=== PATIENT | male | born 1930 | race Caucasian/White ===

== ENCOUNTER 2018-03-10 15:15 | Inpatient (IN) | payer MEDICARE, OTHER ==
[2018-03-10 18:02] LABS: ADD MAN DIFF? NO
[2018-03-10] MEDS: OXYCODONE/ACETAMINOPHEN (5/325) TAB PO (18:07)
[2018-03-10] MEDS: SOD CHLORIDE 0.9% 500 ML IV (18:07)
[2018-03-10 18:09] LABS: INR 0.99; PARTIAL THROMBOPLASTIN TIME 29.3 Sec (25.0-35.0); PROTIME 13.2 Sec (11.9-14.9)
[2018-03-10 18:10] LABS: WHITE BLOOD COUNT 8.2 10^3/ul (4.8-10.8)
[2018-03-10 18:10] LABS: BASOPHILS % 0.5 % (0.0-2.0); EOSINOPHILS # 0.2 10^3/ul (0.0-0.5); EOSINOPHILS % 2.7 % (0.0-7.0); HEMATOCRIT 35.9 % (42.0-52.0); HEMOGLOBIN 12.2 g/dl (14.0-18.0); LYMPHOCYTES # 1.6 10^3/ul (0.8-2.9); LYMPHOCYTES % 19.9 % (15.0-51.0); MEAN CORPUSCULAR HEMOGLOBIN 32.4 pg (29.0-33.0); MEAN CORPUSCULAR VOLUME 95.2 fl (82.0-101.0); MEAN PLATELET VOLUME 9.3 fl (7.4-10.4); MONOCYTE # 0.7 10^3/ul (0.3-0.9); MONOCYTES % 8.1 % (0.0-11.0); NEUTROPHIL # 5.7 10^3/ul (1.6-7.5); NEUTROPHILS % 68.6 % (39.0-77.0); PLATELET COUNT 407 10^3/UL (140-415); RED BLOOD COUNT 3.77 10^6/ul (4.70-6.10); RED CELL DISTRIBUTION WIDTH 13.3 % (11.5-14.5)
[2018-03-10 18:11] LABS: ALANINE AMINOTRANSFERASE 88 IU/L (13-69); ALBUMIN 4.4 g/dl (3.3-4.9); ALBUMIN/GLOBULIN RATIO 1.15; ALKALINE PHOSPHATASE 82 IU/L (42-121); ANION GAP 13 (8-16); ASPARTATE AMINO TRANSFERASE 80 IU/L (15-46); BILIRUBIN,INDIRECT 0.6 mg/dl (0-1.1); BILIRUBIN,TOTAL 0.6 mg/dl (0.2-1.3); BLOOD UREA NITROGEN 18 mg/dl (7-20); CALCIUM 9.4 mg/dl (8.4-10.2); CARBON DIOXIDE 27 mmol/L (21-31); CHLORIDE 108 mmol/L (97-110); CREATININE 0.92 mg/dl (0.61-1.24); GLUCOSE 113 mg/dl (70-220); LIPASE 108 U/L (23-300); POTASSIUM 3.4 mmol/L (3.5-5.1); SODIUM 145 mmol/L (135-144); TOTAL PROTEIN 8.2 g/dl (6.1-8.1)
[2018-03-10 19:02] LABS: ADD UMIC YES; UR ASCORBIC ACID NEGATIVE (NEGATIVE); UR BILIRUBIN (Dip) NEGATIVE (NEGATIVE); UR BLOOD (Dip) 1+ mg/dL (NEGATIVE); UR CLARITY CLEAR (CLEAR); UR COLOR YELLOW (YELLOW); UR GLUCOSE (Dip) NEGATIVE (NEGATIVE); UR KETONES (Dip) NEGATIVE (NEGATIVE); UR LEUKOCYTE ESTERASE (Dip) NEGATIVE Leu/ul (NEGATIVE); UR MUCUS FEW /HPF (NONE SEEN); UR NITRITE (Dip) NEGATIVE (NEGATIVE); UR RBC 4 /HPF (0-5); UR SPECIFIC GRAVITY (Dip) 1.018 (1.003-1.030); UR TOTAL PROTEIN (Dip) 1+ mg/dl (NEGATIVE); UR UROBILINOGEN (Dip) 1+ mg/dL (NEGATIVE); UR WBC 2 /HPF (0-5)
[2018-03-10] MEDS ORDERED: HALOPERIDOL 5 MG INJ IM (22:30)
[2018-03-10] MEDS: LORAZEPAM 2 MG INJ IV (22:30)
[2018-03-10] MEDS ORDERED: ACETAMINOPHEN 500 MG TAB PO (22:30)
[2018-03-10 23:20] LABS: LACTIC ACID 1.2 mmol/L (0.5-2.0)
[2018-03-10 23:20] LABS: MAGNESIUM 2.1 mg/dl (1.7-2.5)
[2018-03-10 23:20] LABS: IRON 46 ug/dl (35-150)
[2018-03-10 23:29] LABS: % IRON SATURATION 19 % SAT (22-52); TOTAL IRON BINDING CAPACITY 248 ug/dl (241-421)
[2018-03-10] MEDS: POTASSIUM CHLORIDE (SR) 20 MEQ TAB PO (23:41)
[2018-03-11] MEDS ORDERED: KCL IV (00:30)
[2018-03-11] MEDS ORDERED: D5 NS IV (00:30)
[2018-03-11] MEDS: LEVOFLOXACIN 500MG/D5W (PMX) 100 ML IVPB ×2 (01:10→21:57)
[2018-03-11] MEDS: DEXTROSE 5% IV (02:22)
[2018-03-11] MEDS: SODIUM CHLORIDE IV (02:22)
[2018-03-11] MEDS: POTASSIUM CHLORIDE IV (02:22)
[2018-03-11] MEDS: CLONIDINE 0.1 MG/24 HR PATCH TRANSDERM (02:23)
[2018-03-11] MEDS: PANTOPRAZOLE 40 MG INJ IV (06:02)
[2018-03-11 06:16] LABS: ADD MAN DIFF? NO
[2018-03-11 06:20] LABS: WHITE BLOOD COUNT 6.9 10^3/ul (4.8-10.8)
[2018-03-11 06:20] LABS: BASOPHILS % 0.4 % (0.0-2.0); EOSINOPHILS # 0.2 10^3/ul (0.0-0.5); EOSINOPHILS % 2.6 % (0.0-7.0); HEMATOCRIT 33.7 % (42.0-52.0); HEMOGLOBIN 11.3 g/dl (14.0-18.0); LYMPHOCYTES # 0.9 10^3/ul (0.8-2.9); LYMPHOCYTES % 12.7 % (15.0-51.0); MEAN CORPUSCULAR HEMOGLOBIN 31.7 pg (29.0-33.0); MEAN CORPUSCULAR HGB CONC 33.5 g/dl (32.0-37.0); MEAN CORPUSCULAR VOLUME 94.4 fl (82.0-101.0); MEAN PLATELET VOLUME 9.3 fl (7.4-10.4); MONOCYTE # 0.6 10^3/ul (0.3-0.9); MONOCYTES % 9.3 % (0.0-11.0); NEUTROPHIL # 5.1 10^3/ul (1.6-7.5); NEUTROPHILS % 74.4 % (39.0-77.0); PLATELET COUNT 302 10^3/UL (140-415); RED BLOOD COUNT 3.57 10^6/ul (4.70-6.10)
[2018-03-11 06:45] LABS: ANION GAP 11 (8-16); BLOOD UREA NITROGEN 13 mg/dl (7-20); CALCIUM 8.6 mg/dl (8.4-10.2); CARBON DIOXIDE 25 mmol/L (21-31); CHLORIDE 112 mmol/L (97-110); GLUCOSE 99 mg/dl (70-220); POTASSIUM 3.5 mmol/L (3.5-5.1); SODIUM 144 mmol/L (135-144)
[2018-03-11] MEDS: CYANOCOBALAMIN 1000 MCG INJ IM (09:17)
[2018-03-11] MEDS: DONEPEZIL 5 MG TAB PO (09:17)
[2018-03-11] MEDS: PYRIDOXINE 50 MG TAB PO (09:18)
[2018-03-11] MEDS: THIAMINE 100 MG TAB PO (09:18)
[2018-03-11] MEDS: hydrALAzine 20 MG INJ IV (15:15)
[2018-03-11] MEDS: LORAZEPAM 2 MG INJ IV (17:22)
[2018-03-11] MEDS: NYSTATIN 30 GM POWDER BTL TOP (20:58)
[2018-03-11] MEDS: BALSAM PERU/CASTOR OIL 60 GM TUBE TOP (20:58)
[2018-03-12] MEDS: PANTOPRAZOLE 40 MG INJ IV ×2 (06:00→07:00)
[2018-03-12 06:13] LABS: ALANINE AMINOTRANSFERASE 71 IU/L (13-69); ALBUMIN 3.6 g/dl (3.3-4.9); ALBUMIN/GLOBULIN RATIO 1.09; ALKALINE PHOSPHATASE 67 IU/L (42-121); ANION GAP 14 (8-16); ASPARTATE AMINO TRANSFERASE 49 IU/L (15-46); BILIRUBIN,INDIRECT 0.8 mg/dl (0-1.1); BILIRUBIN,TOTAL 0.8 mg/dl (0.2-1.3); BLOOD UREA NITROGEN 8 mg/dl (7-20); CALCIUM 9.1 mg/dl (8.4-10.2); CARBON DIOXIDE 28 mmol/L (21-31); CHLORIDE 105 mmol/L (97-110); CREATININE 0.68 mg/dl (0.61-1.24); GLUCOSE 103 mg/dl (70-220); POTASSIUM 4.6 mmol/L (3.5-5.1); SODIUM 142 mmol/L (135-144); TOTAL PROTEIN 6.9 g/dl (6.1-8.1)
[2018-03-12 06:34] LABS: PROSTATE SPECIFIC ANTIGEN 8.4 ng/ml (0.0-4.0)
[2018-03-12 07:10] LABS: CARCINOEMBRYONIC ANTIGEN 2.9 ng/ml (0.0-5.0)
[2018-03-12] MEDS: DONEPEZIL 5 MG TAB PO ×2 (09:00→11:17)
[2018-03-12] MEDS: PYRIDOXINE 50 MG TAB PO ×2 (09:00→11:17)
[2018-03-12] MEDS: THIAMINE 100 MG TAB PO ×2 (09:00→11:17)
[2018-03-12] MEDS: NYSTATIN 30 GM POWDER BTL TOP ×2 (11:18→20:06)
[2018-03-12] MEDS: BALSAM PERU/CASTOR OIL 60 GM TUBE TOP ×2 (11:18→20:06)
[2018-03-12] MEDS: CYANOCOBALAMIN 1000 MCG INJ IM (11:18)
[2018-03-12] MEDS: LORAZEPAM 2 MG INJ IV (22:32)
[2018-03-12] MEDS: LEVOFLOXACIN 500MG/D5W (PMX) 100 ML IVPB (22:33)
[2018-03-13] MEDS: PANTOPRAZOLE 40 MG INJ IV (05:27)
[2018-03-13] MEDS: CYANOCOBALAMIN 1000 MCG INJ IM (08:29)
[2018-03-13] MEDS: PYRIDOXINE 50 MG TAB PO (08:29)
[2018-03-13] MEDS: THIAMINE 100 MG TAB PO (08:29)
[2018-03-13] MEDS: DONEPEZIL 5 MG TAB PO (08:29)
[2018-03-13] MEDS: BALSAM PERU/CASTOR OIL 60 GM TUBE TOP (08:29)
[2018-03-13] MEDS: NYSTATIN 30 GM POWDER BTL TOP (08:29)
[2018-03-13] MEDS: FINASTERIDE 5 MG TAB PO (16:38)
[2018-03-13] MEDS: TAMSULOSIN (SR) 0.4 MG CAP PO (16:38)
== END 2018-03-13 18:00 | disposition home or self-care (01) | DRG 700 ==
LOC: E/R 15:15 → MS2 19:51
DX: T83.098A Other mechanical complication of other urinary catheter, initial encounter (principal); R33.9 Retention of urine, unspecified; R31.9 Hematuria, unspecified; F03.90 Unspecified dementia, unspecified severity, without behavioral disturbance, psychotic disturbance, mood disturbance, and anxiety; E78.00 Pure hypercholesterolemia, unspecified; I25.10 Atherosclerotic heart disease of native coronary artery without angina pectoris; N40.0 Benign prostatic hyperplasia without lower urinary tract symptoms; R42 Dizziness and giddiness; M19.90 Unspecified osteoarthritis, unspecified site; Y84.6 Urinary catheterization as the cause of abnormal reaction of the patient, or of later complication, without mention of misadventure at the time of the procedure; M81.0 Age-related osteoporosis without current pathological fracture; F32.9 Major depressive disorder, single episode, unspecified; F02.80 Dementia in other diseases classified elsewhere, unspecified severity, without behavioral disturbance, psychotic disturbance, mood disturbance, and anxiety; R63.4 Abnormal weight loss; Z68.23 Body mass index [BMI] 23.0-23.9, adult; R13.10 Dysphagia, unspecified; E78.5 Hyperlipidemia, unspecified; E87.6 Hypokalemia; Z79.82 Long term (current) use of aspirin; Y92.009 Unspecified place in unspecified non-institutional (private) residence as the place of occurrence of the external cause
CPT/HCPCS: 76705; 80048; 80053; 81001; 82378; 83540; 83605; 83690; 83735; 84153; 84154; 85025; 85610; 85730; 87081; 87086; 92610; 93306; 97116; 97162; 97167; 97530; G0378